=== PATIENT | female | born 1955 | race American Indian/Alaskan Native ===

== ENCOUNTER → 2019-03-23 | Day surgery (SDC) | payer MEDICARE, MEDICAID, OTHER ==
[~2019-03-23] MED LIST: Dextrose 5%-0.45% NaCl 1,000 ML IV SCH; Midazolam 1 MG/ML 2 ML SDV IV ONE; Midazolam 1 MG/ML 2 ML SDV ONE; fentaNYL 100 MCG/2 ML SDV IV ONE; fentaNYL 100 MCG/2 ML SDV ONE
--- NOTE | 2019-03-23 07:25 | OR ---
DATE: 03/23/2019 PROCEDURE: Total colonoscopy. INSTRUMENT USED: [id number] Olympus video colonoscope. PREMEDICATIONS: Fentanyl 100 mcg intravenous, Versed 4 mg intravenous, nasal O2 cannula. The procedure was done under pulse oximetry, BP recording, and monitoring analyst. INDICATION: Screening colonoscopic examination is done for detection of any polypoid lesions and removal, endoscopic hemostasis therapy if needed. DESCRIPTION OF PROCEDURE: Initial rectal exam was unremarkable. Rigid anoscopy showed small internal hemorrhoids without bleeding from them. The colonoscope was passed with ease. Numerous scattered diverticula were noted, more in the distal left colon along with deformity. The scope was passed with ease up to the ileocecal area. Photographs were taken of the normal-appearing cecum, identified by double-bulged ileocecal folds. No bleeding was noted from any of the visualized areas at the commencement of the examination. The bowel preparation was found to be adequate, [place] scale 2 in the right colon, transverse colon, as well as left colon, total score of 6. No stricture. No vascular ectasia. No large isolated ulcerations seen. No evidence of diffuse inflammatory bowel disease in the form of friability, contact bleeding, or ulcerations. No polyp or tumor mass identified. Probing the proximal sides of folds and flexures using adequate distention and clearing up the stool material, withdrawal of the scope was made, cecum to rectum time over 6 minutes. No bleeding was noted from any of the visualized areas at the completion of the examination. IMPRESSION: 1. Internal hemorrhoids. 2. Diverticulosis. The patient tolerated the procedure well. [facility] /[id number]
--- NOTE | 2019-03-23 08:52 | LETTER ---
03/23/2019 Migdalia Rogers NP [facility] [address] [place] [address] RE: ELIO MOLINA : 1955 Dear Ms. Sanchez: Ms. Blair Loydamaria d Molina had colonoscopic examination done this morning and she tolerated the procedure well. I herewith send a copy of the endoscopy note and photographs for your review. Thank you. Sincerely, [facility] /[id number]
== END | disposition home or self-care (01) ==
LOC: DL.ENDO 05:22
PROVIDERS: ATTEND Internal Medicine Gastroenterology
DX: Z12.11 Encounter for screening for malignant neoplasm of colon (principal); K57.30 Diverticulosis of large intestine without perforation or abscess without bleeding; K64.8 Other hemorrhoids; I27.20 Pulmonary hypertension, unspecified; I50.9 Heart failure, unspecified; N18.9 Chronic kidney disease, unspecified; R73.9 Hyperglycemia, unspecified; E66.09 Other obesity due to excess calories; Z68.32 Body mass index [BMI] 32.0-32.9, adult
CPT/HCPCS: G0121; J2250; J3010; J7042

== ENCOUNTER 2019-07-14 05:43 | Day surgery (SDC) | payer MEDICARE, MEDICAID ==
[2019-07-14] MEDS ORDERED: fentaNYL 100 MCG/2 ML SDV IV ONE ×3 (05:44→07:02)
[2019-07-14] MEDS ORDERED: Midazolam 1 MG/ML 2 ML SDV IV ONE ×3 (05:44→07:03)
[2019-07-14] MEDS ORDERED: Dextrose 5%-0.45% NaCl 1,000 ML IV SCH (06:00)
[2019-07-14] MEDS ORDERED: Midazolam 1 MG/ML 2 ML SDV ONE (06:19)
[2019-07-14] MEDS ORDERED: fentaNYL 100 MCG/2 ML SDV ONE (06:19)
--- NOTE | 2019-07-14 07:54 | OR ---
DATE: 07/14/2019 PROCEDURE: Esophagogastroduodenoscopy and multiple pinch biopsies. INSTRUMENT USED: [id number] Olympus video panendoscope. PREMEDICATIONS: No oral or topical anesthesia used. Fentanyl 100 mcg intravenous, Versed 2 mg intravenous. Nasal O2 cannula. The procedure was done under pulse oximetry, BP recording, and cardiac technologist. INDICATION: The patient with known liver cirrhosis, on long-term low dose aspirin. Esophagogastroduodenoscopy is performed for detection of any esophageal varices, H pylori status to be determined, endoscopic hemostasis therapy if needed. DESCRIPTION OF PROCEDURE: The scope was passed with ease. Adequate visualization of the esophagus was made from proximal to distal areas. No upper esophageal lesions identified. No distal esophageal stricture. No uphill or downhill esophageal varices. No Mary-Camacho tear. No evidence of erosive esophagitis by Sedley criteria. No esophageal polyp or tumor mass identified. Z-line was seen at around 40 cm distal to the oral verge, configuration consistent with grade 1 by ZAP classification. No proximal gastric varices noted. Gastric fundus examination by retroflexion showed no polypoid lesions. No gastric ulcer, malignant mass, or vascular ectasia identified. Numerous scattered erosions were noted in the distal body and antrum without bleeding from them. Duodenal bulb showed no ulcer. Visualized second part of the duodenum was unremarkable. Multiple pinch biopsies were taken from the gastric antrum and proximal body and sent for PyloriTek test for H pylori, and if negative in an hour, the tissue is to be sent for histopathology. No bleeding was noted from any of the visualized areas at the completion of examination. Photographs were taken of the duodenal bulb, gastric antrum, fundus, and distal esophagus. IMPRESSION: Gastric erosions. The patient tolerated the procedure well. [facility] /[id number]
--- NOTE | 2019-07-14 08:36 | LETTER ---
07/14/2019 Migdalia Patel NP [facility] [address] [place] [address] RE: SARAHROSSY HUI PAULINO : 1955 Dear Ms. Patel: Ms. Rossy Cunningham had esophagogastroduodenoscopy done this morning and she tolerated the procedure well. I herewith send a copy of the endoscopy note and photographs for your review. Thank you. Sincerely, [facility] /[id number]
== END 2019-07-14 09:10 | disposition home or self-care (01) ==
LOC: DL.ENDO 05:43
PROVIDERS: ATTEND Internal Medicine Gastroenterology
DX: K25.9 Gastric ulcer, unspecified as acute or chronic, without hemorrhage or perforation (principal); K74.60 Unspecified cirrhosis of liver; E66.09 Other obesity due to excess calories; I27.20 Pulmonary hypertension, unspecified; N18.9 Chronic kidney disease, unspecified; D69.6 Thrombocytopenia, unspecified; F10.21 Alcohol dependence, in remission; Z79.82 Long term (current) use of aspirin; Z68.35 Body mass index [BMI] 35.0-35.9, adult
CPT/HCPCS: 43239; 87077; J2250; J3010; J7042

== ENCOUNTER 2020-02-01 11:31 | Emergency (ER) | payer MEDICARE, MEDICAID ==
--- NOTE | 2020-02-01 14:52 | EDM.PDOC ---
ED HPI GENERAL MEDICAL PROBLEM - General Chief Complaint: Respiratory Problem Stated Complaint: SOB/COUGH/DIARRHEA X 2 WEEKS Time Seen by Provider: 02/01/20 14:49 Source of Information: Reports: Patient, RN, RN Notes Reviewed History Limitations: Reports: No Limitations - History of Present Illness INITIAL COMMENTS - FREE TEXT/NARRATIVE: Patient presents to the ED via personal vehicle with complaints of shortness of breath, cough, and diarrhea. She states she has a history of COPD with pulmonary hypertension, for which she is prescribed Sildenafil; she is a former smoker with a quite date in 2014. She states she developed diarrhea about two weeks ago and has been experiencing multiple bouts each day. She denies fever, shaking chills, sore throat, chest pain/pressure, palpitations, nausea, vomiting, dysuria, hematuria, melena, or hematochezia. She has a history of CKD for which she follows with Dr. Bermudez at [facility]; she is currently on Furosemide, which she took today. She has not taken any additional medications for this shortness of breath or cough. - Related Data Allergies Allergy/AdvReac Type Severity Reaction Status Date / Time No Known Allergies Allergy Verified 02/01/20 14:32 Home Meds: Home Meds Aspirin [Dragan Chewable Aspirin] 81 mg PO DAILY 05/25/18 [History] Furosemide [Lasix] 40 mg PO ASDIRECTED 05/25/18 [History] Lisinopril 10 mg PO DAILY 05/25/18 [History] Potassium Chloride [Klor-Con M20] 1.5 tab PO BID 05/25/18 [History] Sildenafil [Revatio] 20 mg PO TID 05/25/18 [History] Alendronate [Fosamax] 70 mg PO WEEKLY 03/22/19 [History] Calcium Carbonate/Vitamin D3 [Calcium 600 + Vit D Tablet] 1 tab PO DAILY 03/22/19 [History] Clobetasol [Clobetasol Propionate 0.05% Cream] 1 applic TOP ASDIRECTED 03/22/19 [History] Magnesium Oxide 200 mg PO DAILY 03/22/19 [History] Multivitamin [Multivitamins] 1 each PO DAILY 07/13/19 [History] Naproxen 250 mg PO BID PRN 07/13/19 [History] Past Medical History HEENT History: Reports: Hard of Hearing, Impaired Vision, Other (See Below) Other HEENT History: CHRONIC PERIODONTITIS Cardiovascular History: Reports: Heart Failure, Pulmonary Hypertension, Other (See Below) Other Cardiovascular History: HX OF RIGHT HEART FAILURE. DIASTOLIC CHF Respiratory History: Reports: COPD, Other (See Below) Other Respiratory History: HX OF PULMONARY HYPERTENSION Gastrointestinal History: Reports: None Genitourinary History: Reports: Acute Renal Failure SIDE SEAM TENDER History: Reports: Musculoskeletal History: Reports: Arthritis Neurological History: Reports: None Psychiatric History: Reports: None Endocrine/Metabolic History: Reports: Obesity/BMI 30+, Osteoporosis Hematologic History: Reports: None Immunologic History: Reports: None Oncologic (Cancer) History: Reports: None Dermatologic History: Reports: Eczema, Other (See Below) Other Dermatologic History: CHRONIC DERMATITIS - Infectious Disease History Infectious Disease History: Reports: Novel Coronavirus - Past Surgical History Head Surgeries/Procedures: Reports: None HEENT Surgical History: Reports: None Cardiovascular Surgical History: Reports: Other (See Below) Other Cardiovascular Surgeries/Procedures: HX OF CARDIAC CATHETERIZATION Respiratory Surgical History: Reports: None GI Surgical History: Reports: Colonoscopy, EGD Female Surgical History: Reports: None Endocrine Surgical History: Reports: None Neurological Surgical History: Reports: None Musculoskeletal Surgical History: Reports: None Oncologic Surgical History: Reports: None Dermatological Surgical History: Reports: None Social & Family History - Family History Family Medical History: No Pertinent Family History - Tobacco Use Tobacco Use Status *Q: Former Tobacco User Used Tobacco, but Quit: Yes Month/Year Tobacco Last Used: 0 - Caffeine Use Caffeine Use: Reports: Tea Caffeine Use Comment: 1 daily - Recreational Drug Use Recreational Drug Use: No ED ROS GENERAL - Review of Systems Review Of Systems: Comprehensive ROS is negative, except as noted in HPI. ED EXAM, GENERAL - Physical Exam Exam: See Below Exam Limited By: No Limitations General Appearance: Alert, WD/WN, Mild Distress Eye Exam: Bilateral Eye: EOMI, PERRL Head: Atraumatic, Normocephalic Neck: Normal Inspection, Supple, Non-Tender, Full Range of Motion. No: Lymphadenopathy (L), Lymphadenopathy (R) Respiratory/Chest: No Accessory Muscle Use, Chest Non-Tender, Rhonchi, Wheezing Cardiovascular: Normal Peripheral Pulses, Regular Rate, Rhythm, No Edema, No Gallop, No JVD, No Rub, Systolic Murmur (3/6, loudest over the pulmonic area) Peripheral Pulses: 2+: Radial (L), Radial (R), Dorsalis Pedis (L), Dorsalis Pedis (R) GI/Abdominal: Normal Bowel Sounds, Soft, Non-Tender, No Distention, No Mass, Pelvis Stable (Female) Exam: Deferred Rectal (Female) Exam: Deferred Back Exam: Normal Inspection, Full Range of Motion Extremities: Normal Inspection, Normal Range of Motion, Non-Tender, No Pedal Edema, Normal Capillary Refill Neurological: Alert, Oriented, CN II-XII Intact, Normal Cognition, Normal Gait, No Motor/Sensory Deficits Psychiatric: Normal Affect, Normal Mood Skin Exam: Warm, Dry, Intact, Normal Color, No Rash. No: Diaphoretic, Ecchymosis, Erythema, Mottled, Pallor, Petechiae #1 Interpretation EKG Date: 02/01/20 Time: 14:53 Rhythm: NSR Rate (Beats/Min): 77 [place]: Normal P-Wave: Present QRS: Normal ST-T: Normal QT: Normal Comparison: No Change EKG Interpretation Comments: NSR; No evidence of acute ischemia Course - Vital Signs Last Recorded V/S: Last Vital Signs Temp 96.9 F 02/01/20 11:45 Pulse 77 02/01/20 14:59 Resp 18 02/01/20 11:45 BP 108/57 L 02/01/20 14:59 Pulse Ox 95 02/01/20 14:59 - Orders/Labs/Meds Orders: Active Orders 24 hr Category Date Time Status EKG Documentation Completion [RC] STAT Care 02/01/20 14:09 Active CULTURE BLOOD [BC] Stat Lab 02/01/20 14:30 Received Isolation [COMM] Routine Oth 02/01/20 12:08 Active Labs: Laboratory Tests 02/01/20 02/01/20 02/01/20 Range/Units 12:14 14:30 14:30 WBC 3.3 L (5.0-10.0) 10^3/uL RBC 4.24 (4.2-5.4) 10^6/uL Hgb 14.2 (12.0-16.0) g/dL Hct 41.3 (37.0-47.0) % MCV 97.4 (80-100) fL MCH 33.5 (27.0-34.0) pg MCHC 34.4 (33.0-35.0) g/dL Plt Count 92 L (150-450) 10^3/uL Neut % (Auto) 56.2 (42.2-75.2) % Lymph % (Auto) 29.1 (20.5-50.1) % [place] % (Auto) 14.1 H (2-8) % Eos % (Auto) 0.3 L (1.0-3.0) % Baso % (Auto) 0.3 (0.0-1.0) % Add Manual Diff Yes Neutrophils % (Manual) 50 (42-75) % Band Neutrophils % 8 % Lymphocytes % (Manual) 30 (20-50) % Monocytes % (Manual) 12 H (2-8) % PT 11.5 (9.0-12.0) SEC INR 1.2 (0.9-1.2) APTT 33.4 (22.0-34.0) SEC D-Dimer, Quantitative 894 H (0-400) ng/mL Sodium (136-145) mmol/L Potassium (3.5-5.1) mmol/L Chloride (98-107) mmol/L Carbon Dioxide (21-32) mmol/L Anion Gap (7-13) mEq/L BUN (7-18) mg/dL Creatinine (0.55-1.02) mg/dL Est Cr Clr Drug Dosing Estimated GFR (MDRD) BUN/Creatinine Ratio (No establ ref range) Glucose (74-99) mg/dL Lactic Acid (0.4-2.0) mmol/L Calcium (8.5-10.1) mg/dL Total Bilirubin (0.2-1.0) mg/dL AST (15-37) U/L ALT (14-59) U/L Alkaline Phosphatase (46-116) U/L Troponin I (0.000-0.056) ng/mL Total Protein (6.4-8.2) g/dL Albumin (3.4-5.0) g/dL Globulin Albumin/Globulin Ratio SARS-CoV-2 RNA (GUNNAR) Positive H (NEGATIVE) 02/01/20 02/01/20 Range/Units 14:30 14:30 WBC (5.0-10.0) 10^3/uL RBC (4.2-5.4) 10^6/uL Hgb (12.0-16.0) g/dL Hct (37.0-47.0) % MCV (80-100) fL MCH (27.0-34.0) pg MCHC (33.0-35.0) g/dL Plt Count (150-450) 10^3/uL Neut % (Auto) (42.2-75.2) % Lymph % (Auto) (20.5-50.1) % [place] % (Auto) (2-8) % Eos % (Auto) (1.0-3.0) % Baso % (Auto) (0.0-1.0) % Add Manual Diff Neutrophils % (Manual) (42-75) % Band Neutrophils % % Lymphocytes % (Manual) (20-50) % Monocytes % (Manual) (2-8) % PT (9.0-12.0) SEC INR (0.9-1.2) APTT (22.0-34.0) SEC D-Dimer, Quantitative (0-400) ng/mL Sodium 139 (136-145) mmol/L Potassium 4.4 (3.5-5.1) mmol/L Chloride 107 (98-107) mmol/L Carbon Dioxide 19 L (21-32) mmol/L Anion Gap 17.4 H (7-13) mEq/L BUN 29 H (7-18) mg/dL Creatinine 1.91 H (0.55-1.02) mg/dL Est Cr Clr Drug Dosing TNP Estimated GFR (MDRD) 26 BUN/Creatinine Ratio 15.2 (No establ ref range) Glucose 92 (74-99) mg/dL Lactic Acid 3.1 H* (0.4-2.0) mmol/L Calcium 8.4 L (8.5-10.1) mg/dL Total Bilirubin 1.4 H (0.2-1.0) mg/dL AST 76 H (15-37) U/L ALT 26 (14-59) U/L Alkaline Phosphatase 69 (46-116) U/L Troponin I 0.170 H* (0.000-0.056) ng/mL Total Protein 6.7 (6.4-8.2) g/dL Albumin 3.0 L (3.4-5.0) g/dL Globulin 3.7 Albumin/Globulin Ratio 0.81 SARS-CoV-2 RNA (GUNNAR) (NEGATIVE) - Re-Assessments/Exams Free Text/Narrative Re-Assessment/Exam: 02/01/20 Patient noted to be hypoxic on RA in low 80s - up to low 90s on 2L of O2 via NC. She is not on home O2. EKG revealed NSR with no ST elevation. COVID screen +, Lactic acid 3.1, D-dimer 894, Troponin 0.17, Creatinine 1.9, BUN 29. Patient's case discussed with Dr. Yan at [facility] in [place] who kindly accepted the patient for inpatient admission. He would like to refrain from starting Heparin gtt or bolus at this time. Given patient's baseline kidney function, will defer CT scan of chest until patient arrives at [facility]. Plan discussed with patient who verbalized understanding and agreement with plan of care. Departure - Departure Time of Disposition: 16:13 Disposition: DC/Tfer to Acute Hospital 02 Condition: Fair Clinical Impression: COVID-19 virus infection, Hypoxia, D-dimer, elevated, Lactic acidosis COPD (chronic obstructive pulmonary disease) Qualifiers: COPD type: unspecified COPD Qualified Code(s): J44.9 - Chronic obstructive pulmonary disease, unspecified CKD (chronic kidney disease) Qualifiers: Chronic kidney disease stage: unspecified stage Qualified Code(s): N18.9 - Chronic kidney disease, unspecified - Discharge Information Forms: ED Department Discharge, Interfacility Transfer [facility] Sepsis Event Note (ED) - Evaluation Sepsis Screening Result: No Definite Risk - Focused Exam Vital Signs: Vital Signs Temp Pulse Resp BP Pulse Ox 02/01/20 14:59 77 108/57 L 95 02/01/20 11:45 96.9 F 90 18 101/60 90 L - My Orders Last 24 Hours: My Active Orders 02/01/20 12:08 Isolation [COMM] Routine 02/01/20 14:09 EKG Documentation Completion [RC] STAT 02/01/20 14:30 CULTURE BLOOD [BC] Stat - Assessment/Plan Last 24 Hours: My Active Orders 02/01/20 12:08 Isolation [COMM] Routine 02/01/20 14:09 EKG Documentation Completion [RC] STAT 02/01/20 14:30 CULTURE BLOOD [BC] Stat
[2020-02-01 15:02] LABS: PTT,PARTIAL THROMBOPLSTIN TIME 33.4 SEC (22.0-34.0)
[2020-02-01 15:17] LABS: ANION GAP 17.4 mEq/L (7-13); CHLORIDE,CL 107 mmol/L (98-107); SODIUM,NA 139 mmol/L (136-145)
== END 2020-02-01 16:46 ==
LOC: DL.ED 11:31
DX: U07.1 COVID-19 (principal); R09.02 Hypoxemia; R79.1 Abnormal coagulation profile; E87.2 Acidosis; J44.9 Chronic obstructive pulmonary disease, unspecified; N18.9 Chronic kidney disease, unspecified; I50.9 Heart failure, unspecified; M19.90 Unspecified osteoarthritis, unspecified site; E66.9 Obesity, unspecified; Z79.82 Long term (current) use of aspirin; Z79.899 Other long term (current) drug therapy; Z87.891 Personal history of nicotine dependence
CPT/HCPCS: 36415; 80053; 83605; 84484; 85025; 85379; 85610; 85730; 87040; 87804; 93005; 99285; U0002

== ENCOUNTER 2021-03-30 16:21 | Emergency (ER) | payer MEDICARE, MEDICAID ==
[2021-03-30] MEDS ORDERED: Benzonatate 100 MG Cap PO ONE (16:22)
[2021-03-30] MEDS ORDERED: Sodium Chloride 0.9% 10 ML Syringe FLUSH PRN (16:42)
[2021-03-30 17:29] LABS: ANION GAP 10.7 mEq/L (7-13)
[2021-03-30 17:46] LABS: RESPIRATORY SYNCYTIAL VIR NAA NEGATIVE (NEGATIVE)
[2021-03-30] MEDS ORDERED: Iopamidol 612 MG/ML 100 ML Bottle IVPUSH ONE (17:54)
[2021-03-30] MEDS ORDERED: Sodium Chloride 0.9% 1,000 ML IV ONE (17:54)
[2021-03-30 17:56] LABS: CORONAVIRUS COVID-19 NAA POSITIVE (NEGATIVE)
[2021-03-30] MEDS ORDERED: Iopamidol 755 Mg/ML 100 ML Bottle IVPUSH ONE (17:58)
[2021-03-30] MEDS ORDERED: Benzonatate 100 MG Cap ONE (20:21)
== END 2021-03-30 20:48 | disposition home or self-care (01) ==
LOC: DL.ED 16:21
DX: U07.1 COVID-19 (principal); R93.1 Abnormal findings on diagnostic imaging of heart and coronary circulation; I11.0 Hypertensive heart disease with heart failure; I50.9 Heart failure, unspecified; J44.9 Chronic obstructive pulmonary disease, unspecified; E66.9 Obesity, unspecified; Z79.82 Long term (current) use of aspirin; Z79.899 Other long term (current) drug therapy; Z68.33 Body mass index [BMI] 33.0-33.9, adult
CPT/HCPCS: 0241U; 36415; 71045; 71260; 80053; 81001; 83605; 83880; 84484; 85025; 86140; 87040; 93005; 93010; 99284; 99285-25; A9270-GY; J7030; Q9967

== ENCOUNTER 2022-08-17 09:21 | Emergency (ER) | payer MEDICARE, OTHER ==
[2022-08-17] MEDS ORDERED: traMADol 50 MG Tab PO ONE (11:31)
== END 2022-08-17 12:10 | disposition home or self-care (01) ==
LOC: DL.ED 09:21
DX: S42.251A Displaced fracture of greater tuberosity of right humerus, initial encounter for closed fracture (principal); S42.211A Unspecified displaced fracture of surgical neck of right humerus, initial encounter for closed fracture; I11.0 Hypertensive heart disease with heart failure; I50.30 Unspecified diastolic (congestive) heart failure; J44.9 Chronic obstructive pulmonary disease, unspecified; M19.90 Unspecified osteoarthritis, unspecified site; E66.9 Obesity, unspecified; Z68.29 Body mass index [BMI] 29.0-29.9, adult; Z86.16 Personal history of COVID-19; Z79.82 Long term (current) use of aspirin; Z79.899 Other long term (current) drug therapy; W18.30XA Fall on same level, unspecified, initial encounter
CPT/HCPCS: 73030-RT; 73060-RT; 73200-RT; 99284; A9270-GY